=== PATIENT | female | born 1955 | race Asian ===

== ENCOUNTER 2024-01-01 08:31 | Emergency (ER) | payer OTHER ==
[~2024-01-01] VITALS: Ht 157.5 cm; Wt 63.2 kg
[2024-01-01 08:49] VITALS: BP 146/75; PULSE 88; RESP 18; TEMP 97.5; O2SAT 97
[2024-01-01] MEDS: ACETAMINOPHEN 325 MG TAB PO ONE (09:43)
== END 2024-01-01 10:42 | disposition left against medical advice (07) ==
LOC: MED 08:31
DX: M79.675 Pain in left toe(s) (principal); Z53.21 Procedure and treatment not carried out due to patient leaving prior to being seen by health care provider
CPT/HCPCS: 99281